=== PATIENT | male | born 1985 | race Caucasian/White ===

== ENCOUNTER 2022-06-26 16:12 | Emergency (ER) | payer OTHER ==
[2022-06-26 16:27] VITALS: BP 126/81; PULSE 75; RESP 18; TEMP 98.6; BMI 33.4
[2022-06-26] MEDS ORDERED: KETOROLAC TROMETHAMINE 30 MG/1 ML VIAL IM ONE (16:49)
[2022-06-26] MEDS ORDERED: KETOROLAC TROMETHAMINE 30 MG/1 ML VIAL ONE (16:52)
== END 2022-06-26 17:19 | disposition home or self-care (01) ==
LOC: JER 16:12 → JERFT 16:12
PROC: 3E0233Z Introduction of Anti-inflammatory into Muscle, Percutaneous Approach (ICD-10-PCS; principal; 2022-06-26)
DX: R20.2 Paresthesia of skin (principal)
CPT/HCPCS: 99284-25